=== PATIENT | male | born 1975 | race Caucasian/White ===

== ENCOUNTER → 2021-10-13 14:34 | Outpatient (BNVA) | payer OTHER, SELFPAY | PROVIDERS: Visit Provider Surgery | DX: Z12.11 Encounter for screening for malignant neoplasm of colon (principal) | CPT/HCPCS: 99024 ==

== ENCOUNTER 2022-02-02 05:57 | Day surgery (SDC) | payer OTHER, SELFPAY ==
[2022-01-31 09:21] VITALS: BMI 36.5
[2022-02-02 06:12] VITALS: BP 147/91; PULSE 77; RESP 18; TEMP 36.4; O2SAT 98
[2022-02-02] MEDS: sodium chloride 0.9% 1,000 ML 30 ML IV (06:19)
--- NOTE | 2022-02-02 06:20 | W.PM.OPSFHP ---
Same Day Surgery H&P Indication for Procedure/HPI DATE OF PROCEDURE: February 02, 2022 CHIEF COMPLAINT/INDICATIONFOR SURGICAL PROCEDURE: Screening colonoscopy PREOP DIAGNOSIS: Screening colonoscopy PLANNED PROCEDURE: Operation Date: 02/02/22 07:00 Proposed Procedures p Colonoscopy 28115,Z12.11(Not Applicable) - Myke Mahoney MD This is a pleasant 46 years old gentleman comes today for scheduled screening colonoscopy ROS All systems have been reviewed negative except as for the above or per problem list. Medications/Allergies* Home Medications Medication Instructions Recorded Confirmed Type No Known Home Medications 02/02/22 02/02/22 History Allergies/Adverse Reactions Allergy/AdvReac Type Severity Reaction Status Date / Time codeine Allergy hives Verified 02/02/22 06:20 Current Medications: Generic Name Dose Route Start Last Admin Trade Name Freq PRN Reason Stop Dose Admin Sodium Chloride 1,000 mls @ 30 mls/hr 02/02/22 06:00 02/02/22 06:19 Sodium Chloride 0.9% IV 02/03/22 05:59 30 mls/hr .Q24H VINOD Administration Pertinent History/Comorbid Conditions* Family History (Updated 10/13/21 @ 15:06 by DIAN Bowen) Denies family history of Diabetes Cancer Social History Smoking and tobacco status: current every day smoker Pertinent Exam Findings alert, oriented x 3, regular rate & rhythm and procedure specific exam findings (Abdominal exam nontender nondistended soft) Recommendations Surgery/Procedure today (Colonoscopy with possible biopsy) Coding Level of Care Code 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
--- NOTE | 2022-02-02 06:53 | ANES.PREANE2 ---
Pre-Anesthetic Assessment Height/Weight: Height 1.73 m Weight 108.862 kg Temp Pulse Resp BP Pulse Ox O2 Del Method 97.5 F L 77 18 147/91 98 02/02/22 06:12 02/02/22 06:12 02/02/22 06:12 02/02/22 06:12 02/02/22 06:12 02/02/22 06:12 Preop Diagnosis: Screening colonoscopy Operation Date: 02/02/22 07:00 Proposed Procedures p Colonoscopy 47338,Z12.11(Not Applicable) - Myke Mahoney MD Last intake: Intake Last Liquid Date 02/01/22 Last Liquid Time 21:30 Last Solid Date 01/31/22 Last Solid Time 20:00 Social Tobacco 10 cigs per day, 2 can tobacco pack(s) per day medical marijuana Exam alert, oriented x 3, clear to auscultation bilaterally and regular rate & rhythm Airway Submandibular: within normal limits Cervical ROM: within normal limits Mallampati: Class II History/ROS No significant history except as noted Pulmonary None reported CV/HEM None reported None reported Hepatic None reported GI Gastroesophageal Reflux Disease controlled Metabolic None reported Musc/skel None reported Neuropsych None reported Anesthetic Plan ASA status: 2 Anesthesia: Anesthesia Evaluation and MAC Risk of > 500 ml blood loss (7ml/kg in children): Yes, adequate IV access and fluids planned Medications/Allergies Home Medications Medication Instructions Recorded Confirmed Last Taken Type No Known Home Medications 02/02/22 02/02/22 Unknown History Allergies Allergy/AdvReac Type Severity Reaction Status Date / Time codeine Allergy hives Verified 02/02/22 06:20 Current Medications Generic Name Dose Route Start Last Admin Trade Name [place] PRN Reason Stop Dose Admin Sodium Chloride 1,000 mls @ 30 mls/hr 02/02/22 06:00 02/02/22 06:19 Sodium Chloride 0.9% IV 02/03/22 05:59 30 mls/hr .Q24H VINOD Administration PFSH Anesthesia Family History Denies family history of Diabetes Cancer Social History Smoking and tobacco status: current every day smoker Data Anesthesia Cardiac Studies: No Data to Display
[2022-02-02 07:15] VITALS: BP 128/87; PULSE 90; RESP 18; TEMP 36.1; O2SAT 95
[2022-02-02 07:37] VITALS: BP 126/85; PULSE 76; RESP 18; O2SAT 97
--- NOTE | 2022-02-02 15:15 | ANE.PACU2 ---
Inpatient post-anesthesia follow up: Airway intact: Yes Vital signs: Temperature 97 F Pulse Rate 76 Respiratory Rate 18 Blood Pressure 126/85 Pulse Oximetry 97 Oxygen Delivery Me thod Room Air Oxygen Flow Rate Fraction of Inspir ed Oxygen Hydration adequate: Yes Nausea and vomiting: No Pain level: 1 Mental status: Baseline
== END 2022-02-02 07:48 | disposition home or self-care (01) ==
PROVIDERS: Visit Provider Surgery
PROC: 0DJD8ZZ Inspection of Lower Intestinal Tract, Via Natural or Artificial Opening Endoscopic (ICD-10-PCS; CPT 45378; principal; 2022-02-02 07:00)
DX: Z12.11 Encounter for screening for malignant neoplasm of colon (principal); F17.210 Nicotine dependence, cigarettes, uncomplicated; Q27.39 Arteriovenous malformation, other site; K21.9 Gastro-esophageal reflux disease without esophagitis
CPT/HCPCS: 45378; J2704; J7030

== ENCOUNTER → 2022-02-15 15:52 | Outpatient (BNVA) | payer OTHER, SELFPAY | PROVIDERS: Visit Provider Surgery | DX: Z09 Encounter for follow-up examination after completed treatment for conditions other than malignant neoplasm (principal); K55.20 Angiodysplasia of colon without hemorrhage | CPT/HCPCS: 99212 ==

== ENCOUNTER 2023-03-14 08:56 | Emergency (ER) | payer OTHER, SELFPAY ==
--- NOTE | 2023-03-14 09:00 | ECG_ITS ---
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 Measurements Intervals [place] Rate: 80 P: 58 OR: 164 QRS: 34 QRSD: 93 T: 34 QT: 350 QTc: 404 Interpretive Statements SINUS RHYTHM No previous ECG available for comparison Electronically Signed On 03-14-2023 9:56:35 CDT by Emile Villavicencio M.D. [email or web address].[email or web address]/store/NU/[id number] f
[2023-03-14 09:02] VITALS: BP 177/116; PULSE 74; RESP 18; TEMP 36.8; O2SAT 98
--- NOTE | 2023-03-14 09:13 | CT_ITS ---
WS: [id number] CT HEAD NONCONTRAST HISTORY: Symptoms of acute stroke TECHNIQUE: Contiguous axial imaging performed through the brain in 2.5 mm imaging. Bone and soft tiss ue windows. Sagittal and coronal reformats reviewed. All CT scans at [facility] use at least one of these dose optimization techniques: automated exposure control; mA and/or kV adjustment per pa tient size (includes targeted exams where dose is matched to clinical indication); or iterative recon struction. DLP: 1130.88 mGy COMPARISON: None available. No acute intracranial hemorrhage, midline shift or mass effect. No atrophy or prior infarcts or herniation. Ventricles: Normal size with no hydrocephalus. Paranasal sinuses: As visualized are clear. Mastoid air cells: Well pneumatized. Calvarium and scalp: Skull is intact with no soft tissue edema or swelling. IMPRESSION: Negative head CT.
--- NOTE | 2023-03-14 09:13 | CT_ITS ---
WS: [id number] CT ANGIOGRAM CEREBRAL AND CAROTID ARTERIES HISTORY: intermittent L facial/arm numbness, visual changes TECHNIQUE: CT angiogram is performed of the carotid and cerebral arteries. During arterial injection imaging is obtained from the skull vertex to the aortic arch in 1.25 mm imaging. Coronal and sagittal reformats are submitted. Additional multi planar reformats of the carotid and cerebral arteries are submitted, MIP imaging also reviewed. NASCET criteria utilized. All CT scans at [facility] us e at least one of these dose optimization techniques: automated exposure control; mA and/or kV adjust ment per patient size (includes targeted exams where dose is matched to clinical indication); or iter ative reconstruction. CONTRAST: Omnipaque 350; 100 mL IV. DLP: 538.72 mGy.cm COMPARISON: None available. Carotid Angiogram: Right carotid: Common carotid artery: Arises normally from the innominate artery. No significant plaque or stenosis. Internal carotid artery: No plaque or stenosis. External carotid artery: Patent. Left carotid: Common carotid artery: Arises normally from the aorta. No significant plaque or stenosis. Internal carotid artery: No plaque or stenosis. External carotid artery: Patent. Right vertebral artery: Unremarkable. Left vertebral artery: Unremarkable. Arises normally from the subclavian artery. Subclavian arteries: No stenosis or significant abnormality. Upper thorax: Normal. Thyroid gland: Normal. Osseous structures: Prior cervical fusion C4-C6. CEREBRAL ANGIOGRAM: Intracranial vertebral arteries: Normal with no significant atherosclerosis. Basilar artery: No significant stenosis or occlusion. No aneurysm. Intracranial Internal carotid arteries: Demonstrates no significant stenosis or plaque. Middle cerebral arteries: Normal. Anterior cerebral arteries and ACOM: Normal. Posterior cerebral arteries and PCOM's: Normal. Dural venous sinuses are normally enhancing. Mastoid air cells: Normal. Paranasal sinuses: Normal. Calvarium: Normal. IMPRESSION: 1. Normal carotid arteries. 2. Unremarkable [place].
--- NOTE | 2023-03-14 09:16 | W.ED.NEUROSD ---
HPI - Neuro Symptoms/Deficit General: Chief Complaint: General Medical Stated Complaint: Hypertesion Time Seen by Provider: 03/14/23 08:58 Source: patient Mode of arrival: EMS Limitations: no limitations History of Present Illness: Patient is a 47-year-old male with a history of PTSD and tobacco use here after he was seen at the [facility] and sent to the ED via EMS. According to patient over the past 5 days he has had intermittent numbness to the left side of his face involving his lips and jaw as well as his left arm. He states symptoms last approximately 5 minutes or so before subsiding on their own. He states yesterday he had a total of 8 episodes all lasting approximately 5 minutes before subsiding. He states he will occasionally have a right-sided temporal headache. He is complaining of intermittent white zigzag lines that appear in his left vision that is accompanied by the numbness-again subsides along with the numbness after about 5 minutes or so. Denies any weakness to the left extremity. No loss of taste/smell. Currently upon arrival to the ED he is asymptomatic. He arrives hypertensive. He does not check his blood pressure routinely at home. No known diagnosis of hypertension. Onset (ago): day(s) Location: left face and left arm History of same: No Severity: mild Quality: numb, tingling and intermittent Relieving factors: none Exacerbating factors: none On Anticoagulants: No Associated symptoms: Reports headache(s); Deny chest pain, nausea, syncope, vertigo or vomiting Treatments Prior to Arrival: none Review of Systems Const: Denies: fever(s) or chills Eyes: Reports: change in vision and blurry vision; Denies: blind spots, photophobia, floaters or seeing flashes ENMT: Denies: throat pain or odynophagia Card: Denies: chest pain, palpitations, irregular heart rhythm, lightheadedness, syncope or dyspnea on exertion Resp: Denies: dyspnea, productive cough or pain on inspiration GI: Denies: abdominal pain, nausea, vomiting, heartburn or diarrhea : Denies: difficulty urinating or dysuria Musc: Reports: neck pain (chronic); Denies: back pain, extremity pain, extremity swelling, joint pain, joint swelling or joint redness Skin/Breast: Denies: rash Neuro: Reports: headache(s), numbness in extremities and sensory changes; Denies: weakness in extremities, lack of coordination, difficulty walking, frequent falls, dizziness, vertigo, confusion, behavioral changes, Slurred speech present, difficulty communicating thoughts, seizure-like activity, involuntary movements or restless legs [facility] ED PFSH: Medical History Encounter for screening colonoscopy Family History Denies family history of Diabetes Cancer Social History Smoking and tobacco/nicotine status: current every day tobacco/nicotine user NIH stroke score NIHSS: Level Of Consciousness - 1a: 0 Level Of Consciousness Questions - 1b: Both Correct Level Of Consciousness Commands - 1c: Both Correct Best Gaze - 2: Normal Visual Harvey - 3: No Visual Loss Facial Palsy - 4: Normal Motor Arm Right - 5: No Drift Motor Arm Left - 5: No Drift Motor Leg Right - 6: No Drift Motor Leg Left - 6: No Drift Limb Ataxia - 7: Absent Sensory - 8: Normal Best Language - 9: No Aphasia Dysarthia - 10: Normal Extinction And Inattention - 11: 0 Score: Total Score: 0 Physical Exam Const: COMMON NORMALS: no acute distress, patient oriented x3, no limitations, alert and well nourished GENERAL APPEARANCE: cooperative ORIENTATION/CONSCIOUSNESS: Yes awake, Yes oriented to person, Yes oriented to place and Yes oriented to time HENMT: COMMON NORMALS: normocephalic, atraumatic and Normal external nose present HEAD & SCALP: normal to inspection, normocephalic and atraumatic FACE & SINUS: normal facial exam and face symmetric NOSE: Normal external nose present MOUTH: Normal oral and palatal mucosa present, lip normal and tongue normal; no audible dysphonia Eye: COMMON NORMALS: Equal, round and reactive pupils present and EOMs intact bilaterally GENERAL EYE: appearance normal, both eyes and all related structures and normal light reflex VISUAL ACUITY: Yes acuity normal VISUAL HARVEY: No peripheral vision loss, No central vision loss, No left visual field cut, No right visual field cut, No bitemporal visual field cut, No binasal visual field cut and No visual field cut by quadrant ALIGNMENT: Yes alignment normal PUPIL: Yes Equal, round and reactive pupils present DIRECT OPHTHALMOSCOPY: Yes normal light reflex Neck/C-Spine: COMMON NORMALS: full ROM, no lymphadenopathy, supple and no meningeal signs Chest: COMMONS NORMALS: normal inspection of the chest Resp: COMMON NORMALS: normal respiratory effort and clear to auscultation bilaterally AUSCULTATION: clear to auscultation bilaterally Cardio: COMMON NORMALS: regular rate and regular rhythm RATE: regular rate RHYTHM: regular rhythm GI: COMMON NORMALS: Normal to inspection, nondistended, normoactive bowel sounds present, Soft to palpation, non-tender, No hepatosplenomegaly present and no masses PALPATION: Yes Soft to palpation and Yes No hepatosplenomegaly present : COMMON NORMALS: Yes no CVA tenderness BLADDER/KIDNEY EXAM: Yes no CVA tenderness Back/Pelvis: COMMON NORMALS: no CVA tenderness and thoracic and lumbar spine normal to inspection Extremity: COMMON NORMALS: normal to inspection GENERAL: Yes normal exam except as noted Neuro: ODETTE COMA SCALE: document GCS findings [place] coma scale eye opening: Spontaneous [place] coma scale verbal response: Orientated [place] coma scale motor response: Obey commands Odette coma scale total score: 15 COMMON NORMALS: patient oriented x3, CN's II-XII intact bilaterally, moves all extremities, no focal motor deficits, no sensory deficits noted and gait normal SENSORIUM/ORIENTATION: Yes alert, Yes oriented to person, Yes oriented to place and Yes oriented to time MENINGEAL SIGNS: Yes no meningeal signs CRANIAL NERVES: Yes CN normal except as noted COORDINATION/BALANCE: [id number] test normal SPEECH: speech normal MOTOR EXAM: 5/5 motor strength present throughout COORDINATION: [id number] test normal Skin: COMMON NORMALS: no rashes or lesions noted GENERAL SKIN EXAM: no rashes or lesions noted Course Vital Signs: Vital signs: Vital Signs Temperature 98.2 F 03/14/23 09:02 Pulse Rate 74 03/14/23 09:02 Respiratory Rate 18 03/14/23 09:02 Blood Pressure 177/116 03/14/23 09:02 Pulse Oximetry 98 03/14/23 09:02 Oxygen Delivery Me thod Room Air 03/14/23 09:02 MDM - Neuro Symptoms/Deficit Medical Decision Making Patient here for intermittent numbness to the left side of his face and left arm accompanied by a right temporal headache and intermittent visual changes. He is hypertensive upon arrival. At time of arrival to the ED he is completely asymptomatic. His blood work is unremarkable. CT head is negative. CT angio head/neck is negative. Upon re-evaluation patient tells me he had similar numbness to his face (bilaterally) that eventually eventually subsided after a cervical spinal fusion. Patient feels like his symptoms most likely are related to cervical radiculopathy. I told patient I would like him to follow-up with neurology based on his history/symptoms-he is agreeable to this. Blood pressure has improved here after a dose of IV labetalol and repeat BP at reassessment was 153/96. Patient will be encouraged to keep a blood pressure log. We will start him on 10 mg of lisinopril. Recommend he take a baby aspirin as well. Talked about starting a statin but patient declines as he feels all of his symptoms are now related to cervical spine. Case discussed with Dr. Springer who agrees with assessment/plan. Lab Data 03/14/23 08:47 03/14/23 08:47 Laboratory Results WBC 7.66 10^3/uL (3.29-11.43) 03/14/23 08:47 RBC 5.06 10^6/uL (3.85-5.65) 03/14/23 08:47 Hgb 16.90 g/dL (11.27-16.99) 03/14/23 08:47 Hct 45.8 % (37-53) 03/14/23 08:47 MCV 90.5 fl (82-101) 03/14/23 08:47 MCH 33.4 pg (27-33) H 03/14/23 08:47 MCHC 36.9 g/dL (30-55) 03/14/23 08:47 RDW 11.4 % (12.1-15.1) L 03/14/23 08:47 Plt Count 266 10^3/cmm (157-399) 03/14/23 08:47 MPV 10.2 fL (7.4-10.4) 03/14/23 08:47 Neut % (Auto) 41.8 % 03/14/23 08:47 Lymph % (Auto) 41.4 % 03/14/23 08:47 [place] % (Auto) 12.4 % 03/14/23 08:47 Eos % (Auto) 3.3 % 03/14/23 08:47 Baso % (Auto) 0.8 % 03/14/23 08:47 Neut # (Auto) 3.21 10^3/uL (1.8-7.7) 03/14/23 08:47 Lymph # (Auto) 3.2 10^3/uL (0.8-4.8) 03/14/23 08:47 [place] # (Auto) 1.0 10^3/uL (0.2-0.9) H 03/14/23 08:47 Eos # (Auto) 0.3 10^3/uL (0.0-0.8) 03/14/23 08:47 Baso # (Auto) 0.1 10^3/uL (0.0-0.1) 03/14/23 08:47 Nucleated RBC % (auto) 0 % 03/14/23 08:47 Nucleated RBCs # 0.0 /100WBC 03/14/23 08:47 PT 12.00 SECONDS (12.1-14.9) L 03/14/23 08:47 INR 0.87 (0.8-1.2) 03/14/23 08:47 APTT 26.2 SECONDS (23.9-36.7) 03/14/23 08:47 Sodium 141 mmol/L (136-145) 03/14/23 08:47 Potassium 3.8 mmol/L (3.5-5.1) 03/14/23 08:47 Chloride 103 mmol/L (98-107) 03/14/23 08:47 Carbon Dioxide 28 mmol/L (22-29) 03/14/23 08:47 Anion Gap 13.8 (5-19) 03/14/23 08:47 BUN 11 mg/dL (6-20) 03/14/23 08:47 Creatinine 1.0 mg/dL (0.7-1.2) 03/14/23 08:47 GFR Calculation 80.4 mL/min (90-130) L 03/14/23 08:47 Glucose 108 mg/dL (65-115) 03/14/23 08:47 Calculated Osmolality 292 mOsm/kg (285-295) 03/14/23 08:47 Calcium 9.7 mg/dL (8.5-10.5) 03/14/23 08:47 Total Bilirubin 0.9 mg/dL (0.15-1.2) 03/14/23 08:47 AST 28 U/L (0-40) 03/14/23 08:47 ALT 43 U/L (0-41) H 03/14/23 08:47 Alkaline Phosphatase 63 U/L (40-130) 03/14/23 08:47 Total Protein 7.5 g/dL (6.6-8.7) 03/14/23 08:47 Albumin 4.9 g/dL (3.5-5.2) 03/14/23 08:47 Globulin 2.6 g/dL (1.3-4.6) 03/14/23 08:47 Urine Color Yellow (Yellow) 03/14/23 09:48 Urine Appearance Clear (CLEAR) 03/14/23 09:48 Urine pH 6 (5-7) 03/14/23 09:48 Ur Specific [place] 1.010 (1.005-1.030) 03/14/23 09:48 Urine Protein Neg (Negative) 03/14/23 09:48 Urine Glucose (UA) Norm (Normal) 03/14/23 09:48 Urine Ketones Negative (Negative) 03/14/23 09:48 Urine Blood Neg (Negative) 03/14/23 09:48 Urine Nitrate Negative (Negative) 03/14/23 09:48 Urine Bilirubin Neg (Negative) 03/14/23 09:48 Urine Urobilinogen Norm mg/dL (Negative) 03/14/23 09:48 Ur Leukocyte Esterase Negative (Negative) 03/14/23 09:48 Urine Opiates Screen Negative ng/mL (Negative) 03/14/23 09:48 Ur Barbiturates Screen Negative ng/mL (Negative) 03/14/23 09:48 Ur Phencyclidine Scrn Negative ng/mL (Negative) 03/14/23 09:48 Ur Amphetamines Screen Negative ng/mL (Negative) 03/14/23 09:48 U Benzodiazepines Scrn Negative ng/mL (Negative) 03/14/23 09:48 Urine Cocaine Screen Negative ng/mL (Negative) 03/14/23 09:48 U Marijuana (THC) Screen Negative ng/mL (Negative) 03/14/23 09:48 All radiology interpretation(s) finalized by discharge EKG Data EKG 1: EKG interpretation date: 03/14/23 EKG interpretation time: 09:00 Prior EKG tracings: not available for review Interpretation: Sinus rhythm Rate [address] elevation or depression changes noted Discharge Plan Discharge Patient Disposition: Home Clinical Impression: Neurological symptoms Condition: Stable Prescriptions: New lisinopril 10 mg tablet 10 mg PO DAILY Qty: 30 0RF Discharge Orders: Discharge ED (Routine); Ordered 03/14/23 Ordered By: Shana Bhatt Activity Restrictions/Additional Instructions: You may also begin taking an aspirin a day in addition to the blood pressure medication given to you today. As we discussed I would like you to keep a blood pressure log and monitor blood pressure twice daily. As we discussed I will have you follow-up with our neurology team for further evaluation/etiology of your symptoms. 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
[2023-03-14] MEDS: iohexol 350 mg/mL 500 mL Btl (per mL) IV (09:27)
[2023-03-14 09:28] LABS: Basophils # 0.1 10^3/uL (0.0-0.1); Basophils % 0.8 %; Eosinophils # 0.3 10^3/uL (0.0-0.8); Eosinophils % 3.3 %; Hematocrit 45.8 % (37-53); Lymphocytes # 3.2 10^3/uL (0.8-4.8); Lymphocytes % 41.4 %; Mean Corpuscular HGB Conc 36.9 g/dL (30-55); Mean Corpuscular Hemoglobin 33.4 pg (27-33); Mean Corpuscular Volume 90.5 fl (82-101); Mean Platelet Volume 10.2 fL (7.4-10.4); Monocytes % 12.4 %; Neutrophils # 3.21 10^3/uL (1.8-7.7); Neutrophils % 41.8 %; Nucleated Red Blood Cells % 0 %; Platelet Count 266 10^3/cmm (157-399); Red Blood Count 5.06 10^6/uL (3.85-5.65); Red Cell Distribution Width 11.4 % (12.1-15.1); White Blood Count 7.66 10^3/uL (3.29-11.43)
[2023-03-14 09:33] LABS: Alanine Aminotransferase 43 U/L (0-41); Albumin Level 4.9 g/dL (3.5-5.2); Alkaline Phosphatase 63 U/L (40-130); Anion Gap 13.8 (5-19); Aspartate Amino Transferase 28 U/L (0-40); Blood Urea Nitrogen 11 mg/dL (6-20); Calcium 9.7 mg/dL (8.5-10.5); Carbon Dioxide 28 mmol/L (22-29); Chloride 103 mmol/L (98-107); Globulin 2.6 g/dL (1.3-4.6); Glomerular Filtration Rate 80.4 mL/min (90-130); Glucose 108 mg/dL (65-115); Osmolality Calculated 292 mOsm/kg (285-295); Potassium 3.8 mmol/L (3.5-5.1); Sodium 141 mmol/L (136-145); Total Bilirubin 0.9 mg/dL (0.15-1.2); Total Protein 7.5 g/dL (6.6-8.7)
[2023-03-14] MEDS: labetalol 5 mg/mL SDV 20mL 10 MG IV (09:33)
[2023-03-14 09:49] LABS: Add Urine Microscopic? NO; Charge for UA Resulting for Rev
[2023-03-14 09:56] LABS: INR 0.87 (0.8-1.2); Partial Thromboplastin Time 26.2 SECONDS (23.9-36.7)
[2023-03-14 10:02] LABS: Bilirubin Urine Neg (Negative); Blood Urine Neg (Negative); Glucose Urine UA Norm (Normal); Ketones Urine Negative (Negative); Leukocyte Esterase Urine Negative (Negative); Nitrate Urine Negative (Negative); Protein Urine Neg (Negative); Urine Appearance Clear (CLEAR); Urine Color Yellow (Yellow); Urobilinogen Urine Norm (Negative); pH Urine 6 (5-7)
[2023-03-14 10:11] LABS: Amphetamines Screen Urine Negative (Negative); Barbiturates Screen Urine Negative (Negative); Benzodiazepines Screen Urine Negative (Negative); Cocaine Screen Urine Negative (Negative); Opiate Screen Urine Negative (Negative); PCP Screen Urine Negative (Negative); THC Screen Urine Negative (Negative)
--- NOTE | 2023-03-14 10:35 | PC.SOCIAL ---
Neuro Referral Message sent to clinic at this time, clinic to contact patient with appt date/time.
--- NOTE | 2023-03-15 10:59 | PC.SOCIAL ---
Neuro Auth Information faxed to [place] for [facility] for neurology follow up.
== END 2023-03-14 10:44 | disposition home or self-care (01) ==
PROVIDERS: Emergency Provider Physician Assistant
DX: R68.89 Other general symptoms and signs (principal); I10 Essential (primary) hypertension; R20.0 Anesthesia of skin; R51.9 Headache, unspecified; H53.9 Unspecified visual disturbance; Z72.0 Tobacco use
CPT/HCPCS: 70450; 70496; 70498; 80053; 80306; 81003; 85025; 85610; 85730; 93005; 96374; 99285; J3490; Q9967

== ENCOUNTER 2024-12-09 11:49 | Emergency (ER) | payer OTHER, SELFPAY ==
[2024-12-09 11:50] VITALS: BP 185/100; PULSE 113; RESP 16; TEMP 36.7
--- NOTE | 2024-12-09 11:54 | XRR_ITS ---
PROCEDURE INFORMATION: Exam: XR Chest Exam date and time: 12/09/2024 12:24 PM Age: 49 years old Clinical indication: Shortness of breath; Additional info: SOB TECHNIQUE: Imaging protocol: Radiologic exam of the chest. Views: 1 view. COMPARISON: CT angio headneck* [id number] 03/14/2023 9:24 AM FINDINGS: Lungs: Unremarkable. No consolidation. Pleural spaces: Unremarkable. No pleural effusion. No pneumothorax. Heart/Mediastinum: Unremarkable. No cardiomegaly. Bones/joints: Unremarkable. XR/XR chest 1V portable [id number] IMPRESSION: No acute findings.
--- NOTE | 2024-12-09 11:56 | ECG_ITS ---
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 Measurements Intervals [place] Rate: 107 P: 57 NM: 163 QRS: 35 QRSD: 93 T: 31 QT: 322 QTc: 431 Interpretive Statements SINUS TACHYCARDIA ABNORMAL RHYTHM ECG Compared to ECG 03/14/2023 09:00:59 Sinus rhythm no longer present Electronically Signed On 12-11-2024 09:05:07 CDT by Emile Villavicencio M.D. [id number]
--- OUTSIDE RECORDS SUMMARY | 2024-12-09 12:04 | XMS_ITS | Patient Health Record ---
Author Organization [facility] Address [address] [place] [address] Care Team Providers Care Manager Agricultural Name Role Phone Marine Garcia MD Primary Care Provider Chau Bain Unavailable [phone] Allergies Allergen (clinical drug ingredient) Drug/Non Drug Allergy documented on EMR Reaction Allergy Type Onset Date Status codeine Codeine Unknown Drug Allergy Active Reason For Referral No Information Medications Medication SIG (Take, Route, Fr equency, Duration) Notes Start Date End Date Status Cod Liver Oil - Capsule as directed Orally Active Cannabinoids Inhaled as directed inhaled as directed Active Social History Tobacco Use: Social History Observation Description Date Details (start date - stop date) Current Smoker NA - NA Social History Drugs/Alcohol: Social Info Question Answer Notes Alcohol Screen (Audit-C) Did you have a drink containing alcohol in the past year? No Points 0 Interpretation Negative Drugs Have you used drugs other than those for medical reasons in the past 12 months? No Tobacco Use: Social Info Question Answer Notes xTobacco Use/Smoking Are you a current smoker How often do you smoke cigarettes? every day How many cigarettes a day do you smoke? 5 or less Additional Details Category Social Info Options Details Drugs/Alcohol: Do you smoke marijuana? Ad mits, Had medical marijuana card Problems Problem Type SNOMED Code ICD Code Onset Dates Problem Status W/U Status Risk Notes Problem Dysphagia (09723440) Dysphagia (R13.10) Active confirmed Plan Of Treatment Pending Test Test Name Order Date Cervical Spine AP/Lat 2-3 Views-10196 Cervical Spine AP/Lat 2-3 Views-36659 XR Outside CD 07/18/2021 XR Outside CD 07/18/2021 zzzMRI Outside CD 07/18/2021 zzzMRI Outside CD 07/18/2021 Insurance Providers Payer Name Payer Address Payer Phone Subscriber Number Group Number Insured Name Patient Relationship to Insured Coverage Start Date Coverage End Date [employer] [address] [place] [phone] [id number] Kermit Buitrago Self - patient is the insured Medical (General) History Medical History History ICD Code chicken pox scarlet fever pneumonia migraine headache back trouble high blood pressure asthma anxiety depression fatty liver Surgical History Surgery Date(Month/Year) sinus surgery 2017 carpal tunnel 2019 fusion 2018 Hospitalization History Reason Date(Month/Year) see surgical hx
[2024-12-09 12:59] LABS: Hematocrit 49.6 % (37-53); Hemoglobin 17.50 g/dL (11.27-16.99); Mean Corpuscular HGB Conc 35.3 g/dL (30-55); Mean Corpuscular Hemoglobin 32.5 pg (27-33); Mean Corpuscular Volume 92.0 fl (82-101); Nucleated Red Blood Cells % 0 %; Platelet Count 271 10^3/cmm (157-399); Red Blood Count 5.39 10^6/uL (3.85-5.65); White Blood Count 11.71 10^3/uL (3.29-11.43)
[2024-12-09 13:05] VITALS: BP 194/121; PULSE 110; O2SAT 99
--- NOTE | 2024-12-09 13:08 | ED_ITS ---
HPI - SOB/Dyspnea 2 General: Chief Complaint: Shortness of Breath/Dyspnea Stated Complaint: sob, cramping feeling in legs, trouble sleeping Time Seen by Provider: 12/09/24 11:54 Source: patient Mode of arrival: ambulatory Limitations: no limitations History of Present Illness: HPI Narrative: 49-year-old male who presents to the ED with complaint of shortness of breath since yesterday. Feels like it may be related to his testosterone replacement. He feels dyspnea is worse while laying down and better sitting up. Last TRT injection was 2 days ago-getting this from an [email or web address]. He states that yesterday he began having shortness of breath that got progressively worse and was unable to sleep last night due to this. Denies any chest pain, palpitations, leg swelling, abdominal pain, nausea, vomiting, dizziness, lightheadedness, or syncope. He states that he does not normally get short of breath after his TRT injections. He has a history of hypertension but is not currently on any medications for this. He states that his blood pressure at home is normally around 140/80. He is very hypertensive here. No other complaints at this time. Reports he has had to go to ERs previously for complaints of shortness of breath and states I always get told it is just anxiety . He also reports some lung damage from service in [place]. elicited complaint: shortness of breath Onset (ago): day(s) (1) Timing: constant Severity: moderate Exacerbating factors: lying flat Relieving factors: nothing Associated symptoms: Reports extremity pain; Deny abdominal pain, chest congestion, chest pain, fever(s), lightheadedness, nausea, orthopnea, palpitations, syncope or vomiting Treatment prior to arrival: none Related Data Home Medications ?Medication ?Instructions ?Recorded ?Confirmed testosterone cypionate 200 mg/mL 30 mg SUBCUT .SUNDAY & Sunday12/09/24 12/09/24 intramuscular oil Previous Rx's ?Medication ?Instructions ?Recorded metoprolol tartrate 25 mg tablet 25 mg PO BID #60 tabs 12/09/24 Allergies Allergy/AdvReac Type Severity Reaction Status Date / Time codeine Allergy hives Verified 10/07/24 15:33 Review of Systems 2 Const: Reports: fatigue and malaise; Denies: fever(s), chills or body aches Eyes: Denies: change in vision, blurry vision, photophobia, floaters or seeing flashes Card: Reports: dyspnea on exertion; Denies: chest pain, palpitations, irregular heart rhythm, edema, swelling of feet/ankles, lightheadedness, syncope, pre-syncope, orthopnea, leg pain with exertion or acrocyanosis Resp: Reports: dyspnea; Denies: productive cough, non-productive cough or chest congestion GI: Denies: abdominal pain, nausea, vomiting or diarrhea : Denies: flank pain, dysuria or hematuria Musc: Reports: extremity pain; Denies: neck pain, back pain, extremity swelling, joint pain, joint swelling or joint redness Skin/Breast: Denies: rash Neuro: Denies: headache(s), numbness in extremities, weakness in extremities or sensory changes PFSH ED 2 PFSH: Medical History Low testosterone in male Encounter for screening colonoscopy Family History Denies family history of Diabetes Cancer Social History Smoking and tobacco/nicotine status: never used tobacco/nicotine Physical Exam 2 Const: COMMON NORMALS: no acute distress, average body habitus, patient oriented x3, no limitations, healthy appearing, alert and well nourished G ENERAL APPEARANCE: cooperative ORIENTATION/CONSCIOUSNESS: Yes awake, Yes oriented to person, Yes oriented to place and Yes oriented to time HENMT: COMMON NORMALS: normocephalic and atraumatic HEAD & SCALP: normal to inspection, normocephalic and atraumatic Eye: COMMON NORMALS: no scleral icterus Neck/C-Spine: COMMON NORMALS: full ROM, no lymphadenopathy, supple and no meningeal signs Chest: COMMONS NORMALS: normal inspection of the chest and normal palpation of entire chest wall Resp: COMMON NORMALS: normal respiratory effort and clear to auscultation bilaterally AUSCULTATION: clear to auscultation bilaterally Cardio: COMMON NORMALS: regular rhythm RATE: tachycardic RHYTHM: regular rhythm GI: COMMON NORMALS: Normal to inspection, nondistended, normoactive bowel sounds present, Soft to palpation, non-tender, No hepatosplenomegaly present and no masses PALPATION: Yes Soft to palpation and Yes No hepatosplenomegaly present : COMMON NORMALS: Yes no CVA tenderness BLADDER/KIDNEY EXAM: Yes no CVA tenderness Back/Pelvis: COMMON NORMALS: no CVA tenderness and thoracic and lumbar spine normal to inspection Extremity: COMMON NORMALS: normal to inspection, capillary refill normal, no clubbing, cyanosis or edema, no calf tenderness and no pedal edema GENERAL: Y es normal exam except as noted Neuro: [place] COMA SCALE: document GCS findings [place] coma scale eye opening: Spontaneous [place] coma scale verbal response: Orientated [place] coma scale motor response: Obey commands [place] coma scale total score: 15 COMMON NORMALS: patient oriented x3, moves all extremities, no focal motor deficits, no sensory deficits noted and gait normal SENSORIUM/ORIENTATION: Yes alert, Yes oriented to person, Yes oriented to place and Yes oriented to time MENINGEAL SIGNS: Yes no meningeal signs Skin: COMMON NORMALS: no rashes or lesions noted GENERAL SKIN EXAM: no rashes or lesions noted Course 2 Vital Signs: Vital signs: Vital Signs Temperature 98.1 F 12/09/24 11:50 Pulse Rate 92 12/09/24 14:00 Respiratory Rate 16 12/09/24 11:50 Blood Pressure 172/111 12/09/24 14:09 Pulse Oximetry 98 12/09/24 14:00 Oxygen Delivery Me thod Room Air 12/09/24 14:00 MDM - SOB/Dyspnea Medical Decision Making Patient clinically appears in no acute distress. He is satting normal on room air. He does arrive very hypertensive. States he does not take his blood pressure at home. Will place him on blood pressure medications after today's visit recommend he keep a log and follow-up with primary care so they can adjust based on response. His emergency department workup here overall is nonactionable. Does have minor elevation in hemoglobin-this can be seen in TRT replacement. Recommend they continue to monitor this. D-dimer was unremarkable. BNP was normal. CXR was unremarkable. Patient will be allowed discharge with recommendations to follow-up with his primary care provider which he is agreeable to. Medical Records I reviewed the patient's medical records. Lab Data I reviewed the patient's lab results. 12/09/24 12:53 12/09/24 12:53 Labs/Radiology: Laboratory Results WBC 11.71 10^3/uL (3.29-11.43) H 12/09/24 12:53 RBC 5.39 10^6/uL (3.85-5.65) 12/09/24 12:53 Hgb 17.50 g/dL (11.27-16.99) H 12/09/24 12:53 Hct 49.6 % (37-53) 12/09/24 12:53 MCV 92.0 fl (82-101) 12/09/24 12:53 MCH 32.5 pg (27-33) 12/09/24 12:53 MCHC 35.3 g/dL (30-55) 12/09/24 12:53 RDW 11.3 % (12.1-15.1) L 12/09/24 12:53 Plt Count 271 10^3/cmm (157-399) 12/09/24 12:53 MPV 9.8 fL (7.4-10.4) 12/09/24 12:53 Neut % (Auto) 70.0 % 12/09/24 12:53 Lymph % (Auto) 17.7 % 12/09/24 12:53 [place] % (Auto) 10.6 % 12/09/24 12:53 Eos % (Auto) 0.9 % 12/09/24 12:53 Baso % (Auto) 0.5 % 12/09/24 12:53 Neut # (Auto) 8.20 10^3/uL (1.8-7.7) H 12/09/24 12:53 Lymph # (Auto) 2.1 10^3/uL (0.8-4.8) 12/09/24 12:53 [place] # (Auto) 1.2 10^3/uL (0.2-0.9) H 12/09/24 12:53 Eos # (Auto) 0.1 10^3/uL (0.0-0.8) 12/09/24 12:53 Baso # (Auto) 0.1 10^3/uL (0.0-0.1) 12/09/24 12:53 Nucleated RBC % (auto) 0 % 12/09/24 12:53 Nucleated RBCs # 0.0 /100WBC 12/09/24 12:53 D-Dimer 0.33 ug/mLFEU (0-0.59) 12/09/24 12:53 Sodium 139 mmol/L (136-145) 12/09/24 12:53 Potassium 3.7 mmol/L (3.5-5.1) 12/09/24 12:53 Chloride 101 mmol/L (98-107) 12/09/24 12:53 Carbon Dioxide 26 mmol/L (22-29) 12/09/24 12:53 Anion Gap 15.7 (5-19) 12/09/24 12:53 BUN 7 mg/dL (6-20) 12/09/24 12:53 Creatinine 1.0 mg/dL (0.7-1.2) 12/09/24 12:53 GFR Calculation 79.8 mL/min (90-130) L 12/09/24 12:53 Glucose 89 mg/dL (65-115) 12/09/24 12:53 Calculated Osmolality 285 mOsm/kg (285-295) 12/09/24 12:53 Calcium 9.7 mg/dL (8.5-10.5) 12/09/24 12:53 Total Bilirubin 0.8 mg/dL (0.15-1.2) 12/09/24 12:53 AST 28 U/L (0-40) 12/09/24 12:53 ALT 37 U/L (0-41) 12/09/24 12:53 Alkaline Phosphatase 67 U/L (40-130) 12/09/24 12:53 NT-Pro-B Natriuret Pep 46 pg/mL (0-125) 12/09/24 12:53 Total Protein 7.6 g/dL (6.6-8.7) 12/09/24 12:53 Albumin 4.7 g/dL (3.5-5.2) 12/09/24 12:53 Globulin 2.9 g/dL (1.3-4.6) 12/09/24 12:53 XR interpretation done by ED provider, pending radiology final review Discharge Plan Discharge Patient Disposition: Home Clinical Impression: Dyspnea Qualifiers: Dyspnea type: unspecified Qualified Code(s): R06.00 - Dyspnea, unspecified Hypertension Qualifiers: Hypertension type: unspecified Qualified Code(s): I10 - Essential (primary) hypertension Condition: Stable Prescriptions: New metoprolol tartrate 25 mg tablet 25 mg PO BID Qty: 60 0RF No Action testosterone cypionate 200 mg/mL Oil 30 mg SUBCUT .SUNDAY & SUNDAY Discharge Orders: Discharge ED (Routine); Ordered 12/09/24 Ordered By: Shana Bhatt Referrals: Marine Lobo MD [Primary Care Provider, Family Practice] Patient Instructions: Patient Portal & Narciso Instructions Activity Restrictions/Additional Instructions: As we discussed, please begin your blood pressure medication and keep a blood pressure log at home measuring twice daily. Please follow-up with primary care as they will adjust this blood pressure medication based on this log/response. Print Language: Danish Coding Level of Care Code ED Dry Curer for Romana Denny
[2024-12-09 13:25] LABS: Alanine Aminotransferase 37 U/L (0-41); Albumin Level 4.7 g/dL (3.5-5.2); Alkaline Phosphatase 67 U/L (40-130); Anion Gap 15.7 (5-19); Aspartate Amino Transferase 28 U/L (0-40); Blood Urea Nitrogen 7 mg/dL (6-20); Calcium 9.7 mg/dL (8.5-10.5); Carbon Dioxide 26 mmol/L (22-29); Chloride 101 mmol/L (98-107); Creatinine Clr Calc Pharmacy 110.3990; Globulin 2.9 g/dL (1.3-4.6); Glucose 89 mg/dL (65-115); NT Pro B Type Natriuretic Pept 46 pg/mL (0-125); Osmolality Calculated 285 mOsm/kg (285-295); Potassium 3.7 mmol/L (3.5-5.1); Sodium 139 mmol/L (136-145); Total Protein 7.6 g/dL (6.6-8.7)
[2024-12-09 13:30] VITALS: BP 186/115; PULSE 110; O2SAT 99
[2024-12-09 14:00] VITALS: BP 172/111; PULSE 92; O2SAT 98
[2024-12-09] MEDS: labetalol 5 mg/mL SDV 20mL 10 MG IVP (14:01)
[2024-12-09 14:09] VITALS: BP 172/111
[2024-12-09 14:41] VITALS: BP 168/100; PULSE 94; O2SAT 98
== END 2024-12-09 14:42 | disposition home or self-care (01) ==
PROVIDERS: Emergency Medicine; Emergency Provider Physician Assistant; PCP Family Medicine
DX: R06.00 Dyspnea, unspecified (principal); I10 Essential (primary) hypertension
CPT/HCPCS: 36415; 71045; 80053; 83880; 85025; 85378; 93005; 96374; 99285; J3490; J9999